=== PATIENT | male | born 1945 | race Caucasian/White ===

== ENCOUNTER 2018-02-07 12:29 | Emergency (ER) | payer MEDICARE ==
[~2018-02-07] VITALS: Ht 180.3 cm; Wt 90.7 kg
[~2018-02-07 12:29] MED LIST: ACID REDUCER C1 EACH; ALBU90OI6 INH; ASPI81CH PO; CHOL10002 PO; DEXA4 PO; FISH1000 PO; FOLI1 PO; LISI5 PO; OMEP20ER PO; OXYC10TA19 PO; OXYM.05NI; PENVK500 PO; Saw Palmetto450 MG PO; Symbicort 16010.2 GM INH; TADA10TA; TAMS.4ER PO
[2018-02-07 13:03] LABS: Hematocrit 26.7 % (37.0-53.0); Hemoglobin 8.8 g/dL (13.5-17.5); Mean Corpuscular HGB 40.2 pg (26.0-34.0); Mean Corpuscular Volume 122 fL (80-100); Mean Platelet Volume 9.9 fL (9.1-12.4); NRBC ABSOLUTE 0.02 K/mm3 (0.00-0.02); NRBC Auto 0.6 /100 WBC (0.0-0.2); Platelet Count 141 K/mm3 (150-400); RDW Coefficient Variation 14.2 % (11.7-14.2); RDW Standard Deviation 62.4 fL (35.1-46.3); Red Blood Cell Count 2.19 M/mm3 (4.30-5.90); White Blood Cell Count 3.37 K/mm3 (4.00-11.30)
[2018-02-07 13:23] LABS: Alanine Aminotransfer (ALT/SGP 21 U/L (12-78); Albumin, Blood 2.7 g/dL (3.4-5.0); Albumin/Globulin Ratio 0.8 (0.8-1.8); Alk Phos 93 U/L (50-136); Anion Gap 7 mmol/L (6-16); Aspartate Aminotrans (AST/SGOT 25 U/L (12-37); Bilirubin, Total 0.4 mg/dL (0.1-1.0); Blood Urea Nitrogen 17 mg/dL (8-24); Bun/Creatinine Ratio 11.3 (12.0-20.0); CO2, Blood 26 mmol/L (21-32); Calcium, Blood 8.1 mg/dL (8.5-10.1); Chloride, Blood 111 mmol/L (98-108); Globulin, Blood 3.5 g/dL (2.2-4.0); Glomerular Filtration Rate 49 (60-); Glucose, Blood 85 mg/dL (70-99); Potassium, Blood 3.8 mmol/L (3.5-5.5); Sodium, Blood 144 mmol/L (136-145); Total Protein, Blood 6.2 g/dL (6.4-8.2); Troponin I <0.015 ng/mL (0.000-0.040)
[2018-02-07 13:38] LABS: BAND PERCENT MAN 1 % (0-8); BASOPHILS PERCENT MAN 0 % (0-2); EOSINOPHILS PERCENT MAN 0 % (0-6); LYMPHOCYTES ABSOLUTE MAN 1.41 K/mm3 (0.84-5.20); LYMPHOCYTES PERCENT MAN 42 % (21-46); MONOCYTES ABSOLUTE MAN 0.84 K/mm3 (0.16-1.47); MONOCYTES PERCENT MAN 25 % (4-13); NEUTROPHILS ABSOLUTE MAN 1.11 K/mm3 (1.96-9.15); SEG NEUTROPHILS PERCENT MAN 32 % (41-73); TOTAL CELLS COUNTED 100
[2018-02-07] MEDS ORDERED: CHOL10002 PO (15:15)
[2018-02-07] MEDS ORDERED: LISI5 PO (15:16)
[2018-02-07] MEDS ORDERED: TADA10TA PO (15:17)
[2018-02-07] MEDS ORDERED: DEXA4 PO (15:18)
[2018-02-07] MEDS ORDERED: Micro-K10 MEQ PO (15:19)
[2018-02-07] MEDS ORDERED: FURO20 PO (15:20)
[2018-02-07] MEDS ORDERED: TAMS.4ER PO (15:20)
[2018-02-07] MEDS ORDERED: CYAN1000I IM (15:21)
== END 2018-02-07 16:35 | disposition home or self-care (01) ==
LOC: ER 12:29
PROVIDERS: Emergency Medicine
DX: R06.02 Shortness of breath (principal); R05 Cough; Z79.899 Other long term (current) drug therapy; Z87.891 Personal history of nicotine dependence; Z85.9 Personal history of malignant neoplasm, unspecified
CPT/HCPCS: 36415; 71046; 80053; 83880; 84484; 85025; 93005; 93010

== ENCOUNTER → 2018-12-24 | Outpatient (CLI) | payer MEDICARE ==
[~2018-12-24] MED LIST changes: +CYAN1000I IM; +FURO20 PO; +Micro-K10 MEQ PO; +TADA10TA PO
== END ==
LOC: LAB EV 10:25 → LAB SHORT 10:25
DX: R06.02 Shortness of breath (principal); R00.0 Tachycardia, unspecified
CPT/HCPCS: 87086

== ENCOUNTER 2019-02-05 08:48 | Day surgery (SDC) | payer MEDICARE ==
[~2019-02-05 08:48] MED LIST changes: +ABAT250V; -FURO20 PO; +FURO40 PO; +LACT10SY PO; +Lisinopril2.5 MG PO; +MIRALAX17 GM PO; +OXYC5 PO; +Zantac150 MG PO
== END 2019-02-05 23:53 | disposition home or self-care (01) ==
LOC: US 08:48
DX: R18.8 Other ascites (principal)
CPT/HCPCS: 49083

== ENCOUNTER 2019-02-22 17:59 | Emergency (ER) | payer MEDICARE ==
[~2019-02-22] VITALS: Ht 180.3 cm; Wt 90.7 kg
[~2019-02-22 17:59] MED LIST changes: +BUDE6HFA INH; -Symbicort 16010.2 GM INH
[2019-02-22] MEDS ORDERED: LISI5 PO (18:44)
[2019-02-22] MEDS ORDERED: Midodrine HCl2.5 MG PO (18:45)
[2019-02-22] MEDS ORDERED: COMPAZINE10 MG PO (18:46)
[2019-02-22 18:48] LABS: BASOPHILS ABSOLUTE AUTO 0.04 K/mm3 (0.00-0.23); BASOPHILS PERCENT AUTO 1 % (0-2); EOSINOPHILS ABSOLUTE AUTO 0.29 K/mm3 (0.00-0.68); EOSINOPHILS PERCENT AUTO 4 % (0-6); Hematocrit 37.8 % (37.0-53.0); Hemoglobin 11.1 g/dL (13.5-17.5); IMMATURE GRAN ABSOLUTE AUTO 0.06 K/mm3 (0.00-0.10); IMMATURE GRAN PERCENT AUTO 1 % (0-1); LYMPHOCYTES ABSOLUTE AUTO 0.44 K/mm3 (0.84-5.20); LYMPHOCYTES PERCENT AUTO 6 % (21-46); MONOCYTES ABSOLUTE AUTO 1.13 K/mm3 (0.16-1.47); MONOCYTES PERCENT AUTO 15 % (4-13); Mean Corpuscular HGB 31.5 pg (26.0-34.0); Mean Corpuscular HGB Conc 29.4 g/dL (31.5-36.5); Mean Corpuscular Volume 107 fL (80-100); Mean Platelet Volume 8.8 fL (9.1-12.4); NEUTROPHILS ABSOLUTE AUTO 5.86 K/mm3 (1.96-9.15); NEUTROPHILS PERCENT AUTO 75 % (41-73); Platelet Count 247 K/mm3 (150-400); RDW Coefficient Variation 17.9 % (11.7-14.2); RDW Standard Deviation 70.6 fL (35.1-46.3); Red Blood Cell Count 3.52 M/mm3 (4.30-5.90); White Blood Cell Count 7.82 K/mm3 (4.00-11.30)
[2019-02-22 19:08] LABS: Albumin/Globulin Ratio 0.5 (0.8-1.8); Bilirubin, Total 0.3 mg/dL (0.1-1.0); Bun/Creatinine Ratio 19.7 (12.0-20.0); Calcium, Blood 8.3 mg/dL (8.5-10.1); Creatinine, Blood 1.57 mg/dL (0.60-1.20); Potassium, Blood 4.6 mmol/L (3.5-5.5)
[2019-02-22 19:15] LABS: International Normalized Ratio 1.05; Prothrombin Time Results 11.1 Sec (9.7-11.5)
== END 2019-02-22 20:45 | disposition home or self-care (01) ==
LOC: ER 17:59
PROVIDERS: Emergency Medicine
DX: N50.89 Other specified disorders of the male genital organs (principal); R18.8 Other ascites; E88.09 Other disorders of plasma-protein metabolism, not elsewhere classified; N18.9 Chronic kidney disease, unspecified; Z87.891 Personal history of nicotine dependence
CPT/HCPCS: 36415; 71045; 80053; 82140; 85025; 85610; 85730; 96365; 99284-25; P9046

== ENCOUNTER 2019-02-24 13:53 | Day surgery (SDC) | payer MEDICARE ==
[~2019-02-24 13:53] MED LIST changes: +COMPAZINE10 MG PO; +Midodrine HCl2.5 MG PO
== END 2019-02-24 22:48 | disposition home or self-care (01) ==
LOC: US 13:53
DX: R18.8 Other ascites (principal)
CPT/HCPCS: 49083